=== PATIENT | male | born 1960 | race Hispanic/Latino ===

== ENCOUNTER → 2019-12-06 | Day surgery (SDC) | payer OTHER ==
[~2019-12-06] MED LIST: ASPIR 8181 MG PO; CEFTRIAXONE SOD 1 GM/NS 50 ML 50 ML IV ONE; FENTANYL CITRATE/PF 100MCG/2 ML INJ ONE; FLOMAX0.4 MG PO; GABAPENTIN300 MG PO; IOPAMIDOL 610MG/1ML 300 MG/ML VIAL IV ONE; LIDOCAINE HCL 2% LOCAL INJ 5 ML SDV VIAL INJ ONE; LISINOPRIL10 MG PO; MIDAZOLAM HCL 2 MG/2 ML VIAL ONE; ONDANSETRON HCL INJ 2MG/ML 2ML 2 MG/ML VIAL ONE; PENTOXIFYLLINE400 MG PO; PROPOFOL IV EMULSION 10 MG/ML 20 ML VIAL ONE; ROCURONIUM BROMIDE 10 MG/ML 5ML VIAL ONE; SEVOFLURANE INHAL SOLN 250 ML PEN BTL ONE; SUCCINYLCHOLINE CHLORIDE 20 MG/ML 10ML VIAL ONE
[2019-12-06 11:30] VITALS: BP 157/83
--- NOTE | 2019-12-06 18:21 | Operative Report ---
DATE OF PROCEDURE: 12/06/2019 SURGEON: Fermín Wade MD PREOPERATIVE DIAGNOSIS: Microscopic hematuria. POSTOPERATIVE DIAGNOSES: Microscopic hematuria with benign prostatic hyperplasia and urethral stricture disease. PROCEDURES: 1. Cystourethroscopy with urethral calibration and dilation of stricture (entirely separate procedure for urethral stricture disease, multifocal). 2. Cystourethroscopy with left ureteral catheterization and left retrograde pyelogram (separate procedure for microscopic hematuria). 3. Cystourethroscopy, right ureteral catheterization and right retrograde pyelogram (separate procedure for microscopic hematuria). 4. Supervision of fluoroscopy. 5. Interpretation of retrograde ureteropyelography. ANESTHESIA: General. ESTIMATED BLOOD LOSS: Minimal. COMPLICATIONS: None. INDICATIONS FOR PROCEDURE: Mr. Stephens is a very pleasant 59-year-old male patient with a history of hematuria. He and I had a long discussion about alternatives, risks, and benefits including doing nothing, cystoscopy, IVP, retrograde pyelograms, renal ultrasound due to anxiety and I talked about cystoscopy as well as the nephrotoxic risk of dye. He elected to proceed with retrograde pyelogram. PROCEDURE IN DETAIL: After informed consent was obtained, the patient was taken to the operative suite, placed supine on the operating table. He underwent general anesthesia by the Anesthesia Service. He was placed in dorsal supine position, sterilely prepped for cystoscopy. A 21-Zimbabwean cystoscope was attempted to be inserted per urethra. It was calibrated to 17-Zimbabwean, dilated to 20-Zimbabwean cystoscope. An 18-Zimbabwean bulbar urethral stricture was also noted. This was dilated with the scope as well. There was trilobar prostatic hypertrophy. Panendoscopy of the bladder revealed moderate degree of trabeculation. No tumors, no stones. Both ureteral orifices were in normal anatomic location and position and were seen to efflux clear urine. Bilateral retrograde pyelogram was performed, which were normal. The bladder was then drained. The patient was awakened from anesthesia and transported to the recovery room in excellent condition. Supervision of fluoroscopy and interpretation of retrograde pyelography: I was present for the entire procedure and I supervised the use of fluoroscopy. There was no radiologist present. Attention was turned to the left and right ureteral orifices, which were catheterized with a 5-Zimbabwean open-ended catheter and retrograde pyelogram was performed revealing delicate ureters, delicate pelvocaliceal systems, no evidence of filling defects, no evidence of hydronephrosis. IMPRESSION: Normal retrograde pyelograms. MD ADELAIDA Hyde/ROMIEL /[id number]
== END | disposition home or self-care (01) ==
LOC: OR 08:33
PROVIDERS: ATTEND Urology
DX: N35.912 Unspecified bulbous urethral stricture, male (principal); N40.1 Benign prostatic hyperplasia with lower urinary tract symptoms; R35.1 Nocturia; N32.89 Other specified disorders of bladder; I10 Essential (primary) hypertension; E66.01 Morbid (severe) obesity due to excess calories; Z01.810 Encounter for preprocedural cardiovascular examination; Z68.36 Body mass index [BMI] 36.0-36.9, adult
CPT/HCPCS: 52281; 76000; 93005; C1758 ×2; J0330; J0696; J2001; J2250; J2405; J2704; J3010; Q9967